=== PATIENT | female | born 1945 | race Caucasian/White ===

== ENCOUNTER 2019-09-14 16:40 | Inpatient (IN) ==
--- NOTE | 2019-09-14 17:08 | XRay Report ---
CLINICAL INFORMATION:Cough TECHNIQUE: AP portable upright chest x-ray COMPARISON: Previous chest x-rays dated 08/26/2016, 08/04/2018. FINDINGS:There is cardiomegaly. Pulmonary vascularity is prominent. There is probable mild interstitial pulmonary edema. Left lung base is not well visualized. This is probably due to overlying heart and extrathoracic soft tissues in this obese patient. Left basilar infiltrate is not excluded. IMPRESSION: 1. Cardiomegaly and pulmonary congestion 2. Interstitial pulmonary edema is possible 3. Left lung base is not well evaluated due to patient obesity Interpreted and Authenticated by: Tim Osuna 09/14/19
[2019-09-14] MEDS: LACTATED RINGERS 1,000 ML IV SCH ×2 (17:25→23:57)
--- NOTE | 2019-09-14 17:37 | Emergency Department Note ---
General Adult HPI - General Chief complaint: Weakness Stated complaint: weakness Time Seen by Provider: 09/14/19 16:45 Source: patient, EMS Mode of arrival: wheelchair Limitations: no limitations - History of Present Illness HPI Narrative: This patient was diagnosed with Lewy body dementia back in November. She has been living at home and family has been caring for her but is getting much more difficult. She has great difficulty walking now and has been falling more and they have had to call the fire department to get assistance in getting her up. She is morbidly obese and very heavy. She has had a slight cough and complains of pain in her left foot after falling this morning. Also has had some edema to her legs. - Related Data Home Medications Medication Instructions Recorded Confirmed Irbesartan/Hydrochlorothiazide 1 each PO DAILY 08/21/16 08/21/16 [Irbesartan-Hctz 150-12.5 mg Tb] LORazepam [Ativan] 2 mg PO PRN PRN 08/21/16 09/14/19 Levothyroxine Sodium [Synthroid] 112 mcg PO DAILY 08/21/16 08/21/16 Ondansetron [Zofran] 4 mg SL Q4HP PRN 08/21/16 08/21/16 Pantoprazole [Protonix] 40 mg PO DAILY 08/21/16 09/14/19 Zafirlukast 20 mg PO BID 08/21/16 08/21/16 buPROPion HCL [Wellbutrin Xl] 300 mg PO DAILY 08/21/16 09/14/19 Previous Rx's Medication Instructions Recorded Pot Chloride/Pot Bicarb/Cit AC 25 meq PO TID #15 tablet.eff 08/21/16 [Potassium Cl 25 Meq Tab Eff] Promethazine HCl 12.5 mg PO Q6HP PRN #20 tablet 08/21/16 Albuterol Sulfate [Ventolin] 2 puff INH Q4-6HP PRN #1 inhaler 08/04/18 Azithromycin [Zithromax] 250 mg PO DAILY #4 tab 08/04/18 Allergies Allergy/AdvReac Type Severity Reaction Status Date / Time fentanyl [FENTANYL] Allergy Severe SOB, Verified 08/04/18 07:29 ASTHMA TYPE SYMPTOMS hydromorphone Allergy Severe Anaphylaxis Verified 08/04/18 07:29 codeine AdvReac Intermediate Hallucinati Verified 08/04/18 07:29 ons meclizine AdvReac Intermediate Hallucinati Verified 08/04/18 07:29 ons diazepam AdvReac Mild Chest Pain Verified 09/14/19 16:46 morphine [MORPHINE] AdvReac Mild HALLUCINATI Verified 08/04/18 07:29 ONS oxycodone [From OXYCONTIN] AdvReac Mild NAUSEA/VOMITING, Verified 08/04/18 07:29 HALLUCINATIONS Review of Systems All systems ED: reviewed and negative except as stated. Past Medical History - Past Medical History [facility] Narrative: Medical History Hypokalemia (Acute) Gastroenteritis (Acute) Medical history: Reports: arthritis, DM, fibromyalgia, thyroid disease, other Surgical history ED: Reports: cholecystectomy, hysterectomy, knee replacement, orthopedic, other (back surgery, thumb surgery, foot surgery, carpal tunnel) - Social History smoking status: Never smoker Alcohol use: Reports: None Drug use: Reports: none Physical Exam Left foot does show some swelling and tenderness over the top of the foot Limitations: no limitations General appearance: alert Head: atraumatic, normocephalic Eye: Present: normal appearance ENT: Present: normal exam Neck: Present: normal inspection Chest: Present: normal inspection Respiratory: Present: rales/crackles Cardiovascular: Present: regular rate, normal rhythm, normal heart sounds Abdominal: Present: soft. Absent: distention, tenderness Extremities: Present: pedal edema, pretibial edema Neurological: Present: alert Psychiatric: Present: normal affect Skin: Present: warm, dry Course Vital Signs Temperature 97.4 F 09/14/19 16:41 Pulse Rate 73 09/14/19 16:41 Respiratory Rate 19 09/14/19 16:41 Blood Pressure 144/49 09/14/19 16:41 Pulse Oximetry (%) 96 09/14/19 16:41 Temperature 97.4 F 09/14/19 16:41 Pulse Rate 73 09/14/19 19:21 Respiratory Rate 14 09/14/19 19:21 Blood Pressure 121/69 09/14/19 19:16 Pulse Oximetry (%) 96 09/14/19 19:21 Medical Decision Making - [facility] Narrative Medical decision making narrative: This patient did have guaiac positive stool but a negative urine. Stool was brown. Her iron studies are quite low. I think she has probably had a slow GI bleed. Hemodynamically she is stable. She will be admitted to the hospital by the hospitalist service. - Lab Data Lab results reviewed: Yes I reviewed the patient's lab results. Result diagrams: 09/14/19 17:10 09/14/19 17:10 Lab Results 09/14/19 09/14/19 09/14/19 Range/Units 17:10 17:10 17:10 WBC 7.7 (4.5-11.0) K/mcL RBC 3.24 L (4.00-5.20) M/mcL Hgb 6.6 L* (12.0-15.0) g/dL Hct 22.3 L (36.0-48.0) % MCV 68.8 L (80.0-100.0) fL MCH 20.3 L (26.0-34.0) pg MCHC 29.5 L (31.0-36.0) g/dL RDW 22.7 H (11.5-14.5) % Plt Count 94 L (140-440) K/mcL MPV 8.5 (7.4-10.4) fL Gran % 65.0 (38.0-78.0) % Lymph % (Auto) 19.0 (15.5-49.0) % Kane % (Auto) 11.0 (1.0-12.0) % Eos % (Auto) 4.0 (0.0-7.0) % Baso % (Auto) 1.0 (0.0-2.0) % Differential Comment * Sodium 133 (133-145) mmol/L Potassium 5.3 H (3.3-5.1) mmol/L Chloride 97 (96-108) mmol/L Carbon Dioxide 24 (22-30) mmol/L Anion Gap 12.0 (8-16) BUN 27 H (8-23) mg/dl Creatinine 1.1 (0.6-1.1) mg/dl GFR Calculation 50 Glucose 113 H (70-105) mg/dL Calcium 8.8 (8.6-10.4) mg/dl Iron (37-145) mcg/dl Ferritin (30-400) ng/ml Total Bilirubin 0.6 (0.0-1.0) mg/dL AST 21 (0-37) U/l ALT 12 (0-40) U/l Alkaline Phosphatase 70 (39-117) U/L Troponin T < 0.01 (0-0.03) ng/ml NT-Pro-B Natriuret Pep (0-125) pg/ml Total Protein 6.4 (5.9-8.4) gm/dL Albumin 3.6 (3.2-5.2) gm/dL Globulin 2.8 (2.2-3.7) gm/dL Albumin/Globulin Ratio 1.3 (1.0-2.3) 09/14/19 09/14/19 Range/Units 17:10 17:10 WBC (4.5-11.0) K/mcL RBC (4.00-5.20) M/mcL Hgb (12.0-15.0) g/dL Hct (36.0-48.0) % MCV (80.0-100.0) fL MCH (26.0-34.0) pg MCHC (31.0-36.0) g/dL RDW (11.5-14.5) % Plt Count (140-440) K/mcL MPV (7.4-10.4) fL Gran % (38.0-78.0) % Lymph % (Auto) (15.5-49.0) % Kane % (Auto) (1.0-12.0) % Eos % (Auto) (0.0-7.0) % Baso % (Auto) (0.0-2.0) % Differential Comment Sodium (133-145) mmol/L Potassium (3.3-5.1) mmol/L Chloride (96-108) mmol/L Carbon Dioxide (22-30) mmol/L Anion Gap (8-16) BUN (8-23) mg/dl Creatinine (0.6-1.1) mg/dl GFR Calculation Glucose (70-105) mg/dL Calcium (8.6-10.4) mg/dl Iron 17 L (37-145) mcg/dl Ferritin 14.4 L (30-400) ng/ml Total Bilirubin (0.0-1.0) mg/dL AST (0-37) U/l ALT (0-40) U/l Alkaline Phosphatase (39-117) U/L Troponin T (0-0.03) ng/ml NT-Pro-B Natriuret Pep 884.1 H (0-125) pg/ml Total Protein (5.9-8.4) gm/dL Albumin (3.2-5.2) gm/dL Globulin (2.2-3.7) gm/dL Albumin/Globulin Ratio (1.0-2.3) - Radiology Data Radiology results reviewed: Yes I reviewed the patient's radiology results. Disposition Pt seen by QM NURSE/PA only: No Clinical Impression: Lewy body dementia, Upper GI bleed, Congestive heart failure Disposition: Xfer As Inpt ([facility]) Condition: Good Referrals: Issa Iyer MD [Primary Care Provider] - Time of Disposition: 19:45
[2019-09-14] MEDS ORDERED: 0.9 % SODIUM CHLORIDE 250 ML IV ONE (17:48)
[2019-09-14 18:03] LABS: ALT/SGPT 12 U/l (0-40); AST/SGOT 21 U/l (0-37); Albumin 3.6 gm/dL (3.2-5.2); Albumin/Globulin Ratio 1.3 (1.0-2.3); Alkaline Phosphatase 70 U/L (39-117); Bilirubin,Total 0.6 mg/dL (0.0-1.0); Blood Urea Nitrogen 27 mg/dl (8-23); Calcium 8.8 mg/dl (8.6-10.4); Carbon Dioxide 24 mmol/L (22-30); Chloride 97 mmol/L (96-108); Globulin 2.8 gm/dL (2.2-3.7); Glomerular Filtration Rate 50; Glucose 113 mg/dL (70-105)
--- NOTE | 2019-09-14 18:15 | XRay Report ---
CLINICAL INFORMATION: Left foot injury TECHNIQUE: Limited 2 view left foot COMPARISON: None. FINDINGS: Negative. No left foot fracture. There is degenerative joint disease in the interphalangeal joints. There is degenerative joint disease at the left first metatarsal phalangeal joint. No acute posttraumatic abnormality. IMPRESSION: No acute abnormality Interpreted and Authenticated by: Tim Osuna 09/14/19
[2019-09-14 18:17] LABS: Hematocrit 22.3 % (36.0-48.0); Hemoglobin 6.6 g/dL (12.0-15.0); Mean Cell Volume 68.8 fL (80.0-100.0); Mean Corpuscular HGB Conc 29.5 g/dL (31.0-36.0); Mean Platelet Volume 8.5 fL (7.4-10.4); Platelet Count 94 K/mcL (140-440); RBC 3.24 M/mcL (4.00-5.20); Red Cell Distribution Width 22.7 % (11.5-14.5); WBC 7.7 K/mcL (4.5-11.0)
[2019-09-14 19:00] LABS: Iron 17 mcg/dl (37-145)
[2019-09-14 19:08] LABS: Ferritin 14.4 ng/ml (30-400)
[2019-09-14] MEDS ORDERED: LIDOCAINE 2% URO-JET 5 ML JEL.PF.APP UR ONE (19:13)
[2019-09-14] MEDS ORDERED: FUROSEMIDE 20 MG/2 ML VIAL IV ONE (19:28)
[2019-09-14 20:21] LABS: Appearance,Urine CLEAR; Bacteria,Urine 0 /hpf (0); Bilirubin,Urine NEG (NEG); Color,Urine YELLOW; Culture Indicated,Urine NO; Glucose,Urine (UA) 150 mg/dL (NEG); Ketones,Urine NEG (NEG); Leukocyte Esterase,Urine NEG /uL (NEG); Mucus,Urine FEW /hpf (0); Nitrate,Urine NEG (NEG); Protein,Urine 100 mg/dL (NEG); Specific Gravity,Urine 1.021 (1.000-1.035); Urine Blood NEG mg/dL (<0.03); Urine Hyaline Cast 97 /lpf (0-2); Urine RBC 1 /hpf (0-1); Urine Squamous Epithelial Cell < 1 /hpf (0-4); Urine WBC 1 /hpf (0-4); Urobilinogen,Urine NEG (NEG)
[2019-09-14] MEDS ORDERED: ONDANSETRON 4 MG/2 ML VIAL IV PRN (20:52)
[2019-09-14] MEDS ORDERED: IPRATROPIUM/ALBUTEROL 3 ML AMPUL.NEB NEB PRN (20:52)
[2019-09-14] MEDS ORDERED: LACTULOSE 20 GM/30 ML ORAL.SOL PO PRN (20:52)
[2019-09-14] MEDS ORDERED: ACETAMINOPHEN 325 MG TABLET PO PRN (20:52)
[2019-09-14] MEDS ORDERED: SENNOSIDES 1 TABLET PO PRN (20:52)
--- NOTE | 2019-09-14 21:05 | Internal Med History&Physical ---
Medical - H&P: [facility] Patient information: Note initiated : 09/14/19 at 9:03 pm Service Date, if different from initiated Date: [] Patient: Diamond Bagley 74 y/o F admitted on for weakness. Chief Complaint: [] History of present illness: Ms. Bagley is a 74 year old F This is a 74-year-old femaleWith a history of morbid obesity, sleep apnea, recently diagnosed Lewy body dementia hallucinations was brought to the ER because of recurrent falls and weakness. According to the patient she gives up her legs and unable to stand she has electric scooter which she could not use as she could not change position she has been bedridden for the last few days. Patient family could not handle her home and was looking for a rehab placement and she was brought to the ER. In the ER initial evaluation showed chest x-ray which is pulmonary edema and her hemoglobin was 6.6 with a normal few months ago. Patient denied any melena hematochezia hematemesis she reported brown stools. She is forgetful she gets hallucinations and delusions. - Constitutional Constitutional: Present: daytime sleepiness, fatigue, frequent falls, malaise, snoring, stops breathing during sleep, weight gain. Absent: chills, excessive sweating, fever(s) - EENT Ears: Absent: ear discharge, ear pain - Cardiovascular Cardiovascular: Present: leg edema, lightheadedness, pedal edema. Absent: chest pain, palpatations - Respiratory Respiratory: Present: dyspnea, dyspnea on exertion, wheezing, snoring, chest congestion. Absent: hemoptysis - Gastrointestinal Gastrointestinal: Present: belching, dyspepsia. Absent: abdominal pain, bloating, change in bowel habits, constipation, diarrhea, dysphagia - Neurological Neurological: Present: behavioral changes, confusion, dizziness, weakness. Absent: sensory deficit, tingling, tremor(s) - Psychiatric Psychiatric: Present: auditory hallucinations, confusion, hallucinations, irritability, memory loss, visual hallucinations. Absent: suicidal ideation Medical - H&P: [facility] Medical history: Medical History Hypokalemia (Acute) Gastroenteritis (Acute) Surgical history: Multiple back surgeries Family history: reviewed and not pertinent Pertinent family history: Grandmother-history of pernicious anemia Social history: Former smoker quit many years ago No alcohol use and no drug abuse Medical - H&P: Meds Home Medications Medication Instructions Recorded Confirmed Type LORazepam [Ativan] 2 mg PO PRN PRN 08/21/16 09/14/19 History Levothyroxine Sodium [Synthroid] 115 mcg PO DAILY 08/21/16 08/21/16 History Ondansetron [Zofran] 4 mg SL Q4HP PRN 08/21/16 08/21/16 History Pantoprazole [Protonix] 40 mg PO DAILY 08/21/16 09/14/19 History Promethazine HCl 12.5 mg PO Q6HP PRN #20 tablet 08/21/16 09/14/19 Rx Zafirlukast 20 mg PO BID 08/21/16 08/21/16 History buPROPion HCL [Wellbutrin Xl] 300 mg PO DAILY 08/21/16 09/14/19 History Albuterol Sulfate [Ventolin] 2 puff INH Q4-6HP PRN #1 inhaler 08/04/18 Rx Celecoxib [Celebrex] DAILY 09/14/19 History Pregabalin [Lyrica] 150 mg PO TID 09/14/19 09/14/19 History Sertraline [Zoloft] PO DAILY 09/14/19 History Telmisartan [Micardis] 20 mg PO DAILY 09/14/19 09/14/19 History Allergies Allergy/AdvReac Type Severity Reaction Status Date / Time fentanyl [FENTANYL] Allergy Severe SOB, Verified 08/04/18 07:29 ASTHMA TYPE SYMPTOMS hydromorphone Allergy Severe Anaphylaxis Verified 08/04/18 07:29 codeine AdvReac Intermediate Hallucinati Verified 08/04/18 07:29 ons meclizine AdvReac Intermediate Hallucinati Verified 08/04/18 07:29 ons diazepam AdvReac Mild Chest Pain Verified 09/14/19 16:46 morphine [MORPHINE] AdvReac Mild HALLUCINATI Verified 08/04/18 07:29 ONS oxycodone [From OXYCONTIN] AdvReac Mild NAUSEA/VOMITING, Verified 08/04/18 07:29 HALLUCINATIONS Medical - H&P: Exam - Constitutional Vitals: Temp Pulse Resp BP Pulse Ox 97.4 F 72 23 H 150/54 98 09/14/19 16:41 09/14/19 20:39 09/14/19 20:34 09/14/19 20:34 09/14/19 20:39 General appearance: morbidly obese - Head Head exam: Present: atraumatic, normal inspection - Expanded Head Exam Head exam: Absent: abrasion, Shine's sign - Eye Eye exam: Absent: nystagmus, periorbital tenderness Pupils: Present: PERRL - ENT ENT exam: Present: mucous membranes moist, normal oropharynx - Expanded ENT Exam Ear exam: Absent: auricular hematoma, auricular trauma - Neck Neck exam: Present: full ROM, lymphadenopathy, normal inspection. Absent: meningismus - Respiratory Respiratory exam: Present: normal respiratory exam, decreased breath sounds, wheezes. Absent: accessory muscle use, chest wall tenderness - Cardiovascular Cardiovascular exam: Present: normal rate and rhythm. Absent: bradycardia, diastolic murmur - GI/Abdominal GI/Abdominal exam: Present: normal bowel sounds, soft, distended - Extremities Exam Extremities exam: Present: calf tenderness, full ROM, joint swelling - Neurological Exam Neurological exam: Present: alert, oriented X3, reflexes normal. Absent: CN II- XII intact, motor sensory deficit Medical - H&P: Reslt - Labs CBC & Chem 7: 09/14/19 17:10 09/14/19 17:10 Labs: Short CBC 09/14/19 Range/Units 17:10 WBC 7.7 (4.5-11.0) K/mcL Hgb 6.6 L* (12.0-15.0) g/dL Hct 22.3 L (36.0-48.0) % Plt Count 94 L (140-440) K/mcL BMP 09/14/19 17:10 Sodium 133 Potassium 5.3 H Chloride 97 Carbon Dioxide 24 BUN 27 H Creatinine 1.1 Glucose 113 H Calcium 8.8 Cardiac Enzymes 09/14/19 Range/Units 17:10 Troponin T < 0.01 (0-0.03) ng/ml Liver Function 09/14/19 Range/Units 17:10 Total Bilirubin 0.6 (0.0-1.0) mg/dL AST 21 (0-37) U/l ALT 12 (0-40) U/l Alkaline Phosphatase 70 (39-117) U/L Albumin 3.6 (3.2-5.2) gm/dL Urine 09/14/19 Range/Units 19:45 Urine Color Yellow Urine Appearance Clear Urine pH 5.0 (5.0-9.0) Ur Specific [place] 1.021 (1.000-1.035) Urine Protein 100 A (NEG) mg/dL Urine Glucose (UA) 150 A (NEG) mg/dL Medical - H&P: A/P - Narrative A/P Narrative: Acute blood loss anemia Probable GI bleed BUN slightly elevated no evidence of melena hematochezia or hematemesis This is probably a slow bleed over the last few weeks Symptomatic Plan Ordered 2 units blood transfusion in the ER We will monitor her vital signs We will discuss with the mounter automatic tomorrow Ordered Pepcid IV 20 twice daily History of previous history of peptic ulcer disease many years ago Monitor hemoglobin every 12 Morbid obesity, obesity hypoventilation and probable pulmonary hypertension Monitor her oxygenation Watch for any pulmonary edema or CHF We will hold off any Lasix for now she received 1 dose in the ER Dementia with behavioral changes Patient reportedly having Lewy body dementia diagnosed by the primary care provider. Patient never seen a neurologist according to the report She is having hallucination and delusions Family could not handle her at home because of her debility and obesity with a worsening dementia symptoms We will have social service physical therapy and case management look for safe placement options Sleep apnea Patient refuses to use the Pap machine Will use oxygen as needed Severe back pain We will try to minimize the use of narcotics DVT prophylaxis-SCDs and no heparin products until BX results CODE STATUS-DNR verified with family Expected length of stay-at least 2 midnights
[2019-09-14] MEDS ORDERED: LORazepam 1 MG TABLET PO PRN (21:08)
[2019-09-14 22:44] LABS: ALT/SGPT 11 U/l (0-40); AST/SGOT 28 U/l (0-37); Albumin 3.6 gm/dL (3.2-5.2); Albumin/Globulin Ratio 1.3 (1.0-2.3); Alkaline Phosphatase 68 U/L (39-117); Bilirubin,Total 0.6 mg/dL (0.0-1.0); Blood Urea Nitrogen 28 mg/dl (8-23); Calcium 8.4 mg/dl (8.6-10.4); Carbon Dioxide 24 mmol/L (22-30); Chloride 100 mmol/L (96-108); Globulin 2.8 gm/dL (2.2-3.7); Glomerular Filtration Rate 50; Glucose 105 mg/dL (70-105)
[2019-09-14] MEDS: DOCUSATE SODIUM 100 MG CAPSULE PO SCH (23:57)
[2019-09-14] MEDS: 0.9 % SODIUM CHLORIDE 10 ML SYRINGE IV SCH (23:58)
[2019-09-14] MEDS: FAMOTIDINE/PF 20 MG/2 ML VIAL IV SCH (23:58)
[2019-09-15] MEDS ORDERED: LORazepam 1 MG TABLET ONE (00:14)
[2019-09-15 01:35] LABS: Appearance,Urine CLEAR; Bacteria,Urine 0 /hpf (0); Bilirubin,Urine NEG (NEG); Color,Urine STRAW; Culture Indicated,Urine YES; Glucose,Urine (UA) 50 mg/dL (NEG); Ketones,Urine NEG (NEG); Leukocyte Esterase,Urine 500 /uL (NEG); Mucus,Urine FEW /hpf (0); Nitrate,Urine NEG (NEG); Protein,Urine NEG (NEG); Specific Gravity,Urine 1.009 (1.000-1.035); Urine Blood >=1.0 mg/dL (<0.03); Urine Hyaline Cast 5 /lpf (0-2); Urine RBC 29 /hpf (0-1); Urine Squamous Epithelial Cell < 1 /hpf (0-4); Urine WBC 82 /hpf (0-4); Urobilinogen,Urine NEG (NEG)
[2019-09-15 04:06] LABS: Hematocrit 25.3 % (36.0-48.0); Hemoglobin 7.6 g/dL (12.0-15.0); Mean Cell Volume 72.4 fL (80.0-100.0); Mean Corpuscular HGB Conc 30.1 g/dL (31.0-36.0); Mean Platelet Volume 10.8 fL (7.4-10.4); Platelet Count 102 K/mcL (140-440); RBC 3.49 M/mcL (4.00-5.20); Red Cell Distribution Width 22.9 % (11.5-14.5); WBC 6.8 K/mcL (4.5-11.0)
[2019-09-15] MEDS: LACTATED RINGERS 1,000 ML IV SCH ×4 (04:14→15:17)
[2019-09-15 04:20] LABS: ALT/SGPT 12 U/l (0-40); AST/SGOT 26 U/l (0-37); Albumin 3.4 gm/dL (3.2-5.2); Albumin/Globulin Ratio 1.2 (1.0-2.3); Alkaline Phosphatase 67 U/L (39-117); Bilirubin,Total 0.7 mg/dL (0.0-1.0); Blood Urea Nitrogen 25 mg/dl (8-23); Calcium 8.6 mg/dl (8.6-10.4); Carbon Dioxide 24 mmol/L (22-30); Chloride 102 mmol/L (96-108); Globulin 2.8 gm/dL (2.2-3.7); Glomerular Filtration Rate 56; Glucose 104 mg/dL (70-105)
[2019-09-15 05:03] LABS: Anisocytosis 2+ (NONE SEEN); Band Neutrophils % 2 % (0-10); Hypochromasia 1+ (NONE SEEN); Lymphocytes % 32 % (15-49); Microcytosis 2+ (NONE SEEN); Monocytes % (Manual) 8 % (1-12); Nucleated Red Blood Cells 2 % (0-0); Ovalocytes 1+ (NONE SEEN); Platelet Estimate DECREASED (NORMAL); Polychromasia 1+ (NONE SEEN); RBC Morphology ABNORM (NORMAL); Segmented Neutrophils % 58 % (38-78)
[2019-09-15] MEDS: 0.9 % SODIUM CHLORIDE 10 ML SYRINGE IV SCH ×3 (05:29→22:53)
[2019-09-15] MEDS ORDERED: PREGABALIN 150 MG CAPSULE PO SCH (09:00)
[2019-09-15] MEDS ORDERED: 0.9 % SODIUM CHLORIDE 250 ML IV SCH ×3 (09:30→10:45)
[2019-09-15] MEDS: LEVOTHYROXINE 150 MCG TABLET PO SCH (09:55)
[2019-09-15] MEDS ORDERED: FUROSEMIDE 40 MG/4 ML VIAL IV ONE (11:42)
[2019-09-15] MEDS: FAMOTIDINE/PF 20 MG/2 ML VIAL IV SCH ×2 (12:16→22:53)
[2019-09-15] MEDS: buPROPion 150 MG TAB.XL.24H PO SCH (12:18)
[2019-09-15] MEDS: LOSARTAN 50 MG TABLET PO SCH (12:18)
[2019-09-15] MEDS: DOCUSATE SODIUM 100 MG CAPSULE PO SCH ×2 (12:18→22:52)
[2019-09-15] MEDS: SERTRALINE 100 MG TABLET PO SCH (12:18)
--- NOTE | 2019-09-15 20:46 | Internal Med Progress Note ---
Medical - PN: Subj Patient information: Note initiated : 09/15/19 at 8:44 pm Service Date, if different from initiated Date: [] Patient: Diamond Bagley 74 y/o F admitted on 09/14/19 for weakness. Chief Complaint: [] Interval history: This is a 74-year-old female with morbid obesity, sleep apnea untreated, Yesy body dementia was admitted with a weakness and probable blood loss anemia. Patient was kept n.p.o. and ordered 1 unit of blood transfusion recheck hemoglobin. 09/15-patient was n.p.o. and ordered another unit as her hemoglobin was 7.6 and she is still complaining of shortness of breath. Discussed with gastroenterology Dr. Alegre and plan was to do an EGD. But this afternoon but patient refused EGD, discussed with the family and family agreed they do not want EGD as the patient is refusing. Patient understands she could from the GI bleed if we do not find out the source and to stop the bleeding patient seems to be understanding family understands. Because of her dementia family is leaning more towards comfort care and I gave them the option to consider comfort measures if the patient does not want any active interventions. Patient was also very drowsy this morning and shown the signs of carbon dioxide narcosis probably from severe sleep apnea which is untreated patient refuses CPAP at any cost she understands she could from carbonDIOXIDE narcosis but even then she does not want CPAP. Discussed with gastroenterology and gastroenterology PA will come and talk to the patient. Pertinent ROS: Review of systems-unable to obtain as the patient is uncooperative but she generally denied any chest pain or abdominal pain or any urine symptoms - Constitutional Vitals: Vital Signs Temp Pulse Resp BP Pulse Ox 98 F 74 18 153/59 93 09/15/19 16:25 09/15/19 17:01 09/15/19 17:01 09/15/19 17:01 09/15/19 17:01 Period Temp Pulse Resp BP Sys/Lr Pulse Ox Last 24 Hr 97.4 F-98.1 F 59-75 12- 104-162/46-96 91-99 Intake and Output 09/15/19 09/15/19 09/15/19 05:59 13:59 21:59 Intake Total 1650 2314 60 Output Total 900 1775 1000 Balance 750 539 -940 Weight 341 lb 4.8 oz Patient Weight 09/16/19 05:59 Weight 341 lb 4.8 oz Intake & Output: Intake & Output 09/15/19 09/15/19 09/15/19 05:59 13:59 21:59 Intake Total 1650 2314 60 Output Total 900 1775 1000 Balance 750 539 -940 Weight 341 lb 4.8 oz Intake: IV 1000 1967 60 Sodium Chloride 0.9% 250 ml @ 60 20 mls/hr IV .[id number] KYM Rx#: [id number] Lactated Ringers 1,000 ml @ 250 1000 1967 mls/hr IV .Q4H KYM Rx#: [id number] Oral 0 Blood Product 650 347 Output: Urine Catheter Amount 900 1775 1000 Other: Urine Appearance Clear Uretheral (Robles) Clear Clear Urine Color Bright Yellow Uretheral (Robles) Dark Yellow Dark Yellow Stool Size Large Small Stool Color Brown Brown Stool Consistency Soft Loose # Bowel Movements 1 1 General appearance: morbidly obese - Head Head exam: Present: atraumatic, normal inspection - Eye Eye exam: Present: conjunctival injection - ENT ENT exam: Present: normal exam - Neck Neck exam: Present: normal inspection, tenderness - Respiratory Respiratory exam: Present: accessory muscle use, decreased breath sounds, respiratory distress - Cardiovascular Cardiovascular exam: Present: normal rate and rhythm. Absent: bradycardia, diastolic murmur - GI/Abdominal GI/Abdominal exam: Present: soft, distended. Absent: rebound, tenderness - Neurological Exam Neurological exam: Present: alert, CN II-XII intact, motor sensory deficit, oriented X3, reflexes normal Medical - PN: Obj Da - Labs CBC & Chem 7: 09/15/19 03:00 09/15/19 03:00 Labs: Abnormal Lab Results 09/15/19 09/15/19 09/15/19 03:00 03:00 00:35 RBC 3.49 L Hgb 7.6 L Hct 25.3 L MCV 72.4 L MCH 21.8 L MCHC 30.1 L RDW 22.9 H Plt Count 102 L MPV 10.8 H Nucleated RBCs 2 H RBC Morphology Abnorm A Polychromasia 1+ A Hypochromasia 1+ A Anisocytosis 2+ A Microcytosis 2+ A Ovalocytes 1+ A Potassium BUN 25 H Glucose Calcium Iron Ferritin NT-Pro-B Natriuret Pep Urine Protein Urine Glucose (UA) 50 A Urine Occult Blood >=1.0 A Ur Leukocyte Esterase 500 A Urine RBC 29 H Urine WBC 82 H Hyaline Casts 5 H 09/14/19 09/14/19 09/14/19 21:15 19:45 17:10 RBC Hgb Hct MCV MCH MCHC RDW Plt Count MPV Nucleated RBCs RBC Morphology Polychromasia Hypochromasia Anisocytosis Microcytosis Ovalocytes Potassium 5.4 H BUN 28 H Glucose Calcium 8.4 L Iron 17 L Ferritin 14.4 L NT-Pro-B Natriuret Pep Urine Protein 100 A Urine Glucose (UA) 150 A Urine Occult Blood Ur Leukocyte Esterase Urine RBC Urine WBC Hyaline Casts 97 H 09/14/19 09/14/19 09/14/19 17:10 17:10 17:10 RBC 3.24 L Hgb 6.6 L* Hct 22.3 L MCV 68.8 L MCH 20.3 L MCHC 29.5 L RDW 22.7 H Plt Count 94 L MPV Nucleated RBCs RBC Morphology Polychromasia Hypochromasia Anisocytosis Microcytosis Ovalocytes Potassium 5.3 H BUN 27 H Glucose 113 H Calcium Iron Ferritin NT-Pro-B Natriuret Pep 884.1 H Urine Protein Urine Glucose (UA) Urine Occult Blood Ur Leukocyte Esterase Urine RBC Urine WBC Hyaline Casts Meds: Medications Acetaminophen (Tylenol) 650 mg PO Q6HP PRN; Protocol PRN Reason: Per Pain Protocol/Fever > 101 Last Admin: 09/15/19 00:27 Dose: 650 mg Documented by: Albuterol/Ipratropium (Duoneb) 3 ml NEB Q6HP PRN PRN Reason: Shortness Of Breath Or Wheezing Bupropion HCl (Wellbutrin Xl) 300 mg PO DAILY [facility] Last Admin: 09/15/19 12:18 Dose: 300 mg Documented by: Docusate Sodium (Colace) 100 mg PO BID [facility] Last Admin: 09/15/19 12:18 Dose: Not Given Documented by: Famotidine (Pepcid) 20 mg IV Q12 [facility] Last Admin: 09/15/19 12:16 Dose: 20 mg Documented by: Lactulose (Cephulac) 10 gm PO DAILYP PRN PRN Reason: Constipation Levothyroxine Sodium (Synthroid) 150 mcg PO QAMAC [facility] Last Admin: 09/15/19 09:55 Dose: Not Given Documented by: Losartan Potassium (Cozaar) 50 mg PO DAILY [facility] Last Admin: 09/15/19 12:18 Dose: Not Given Documented by: Ondansetron HCl (Zofran) 4 mg IV Q4HP PRN; Protocol PRN Reason: Nausea And Vomiting Senna (Senokot) 2 tab PO HSP PRN PRN Reason: Constipation Sertraline HCl (Zoloft) 100 mg PO DAILY [facility] Last Admin: 09/15/19 12:18 Dose: Not Given Documented by: Sodium Chloride (Saline Flush) 10 ml IV Q8 [facility] Last Admin: 09/15/19 05:29 Dose: Not Given Documented by: Medical - PN: A/P - Time Spent With Patient Total time spent is greater than 50% in coordination of care (as documented) at patient's floor/unit and/or counseling patient: - Narrative A/P Narrative: Acute blood loss anemia Probable GI bleed Plan Ordered 2 units blood transfusion and hemoglobin recheck every 6 hourly Ordered Pepcid IV 20 twice daily Discussed with gastroenterology and the plan was to undergo EGD today Patient refused EGD this afternoon and she understands she could from GI bleed if we do not treated even then she does not want any treatment or any EGD History of previous history of peptic ulcer disease many years ago Monitor hemoglobin every 12 Discussed with the patient and family if she does not want any treatment discussed about nonmedical management and comfort measures for her dementia, severe sleep apnea with a carbon dioxide narcosis Morbid obesity, obesity hypoventilation and probable pulmonary hypertension Monitor her oxygenation Watch for any pulmonary edema or CHF We will hold off any Lasix for now she received 1 dose in the ER Patient probably has severe sleep apnea This morning she was very drowsy and confused probably due to CO2 narcosis Explained to the patient about the importance of using CPAP but patient refuses even if I am dying I do not want CPAP Patient was alert oriented and has a decision-making capacity during the conversation Discussed with the family and they agree with the patient's decision and do not want any interventions Explained to the family if that is the case probably we need to think about nonmedical management and symptomatic management as an outpatient Dementia with behavioral changes Patient reportedly having Lewy body dementia diagnosed by the primary care provider. Patient never seen a neurologist according to the report She is having hallucination and delusions Family could not handle her at home because of her debility and obesity with a worsening dementia symptoms Social service consult Sleep apnea Patient refuses to use the CPap machine Will use oxygen as needed Severe back pain We will try to minimize the use of narcotics DVT prophylaxis-SCDs and no heparin products until BX results CODE STATUS-DNR verified with family Expected length of stay-at least 1-2 midnights
[2019-09-16 04:59] LABS: Hematocrit 29.2 % (36.0-48.0); Mean Cell Volume 73.4 fL (80.0-100.0); Mean Corpuscular HGB Conc 30.8 g/dL (31.0-36.0); Mean Platelet Volume 9.9 fL (7.4-10.4); Platelet Count 95 K/mcL (140-440); RBC 3.98 M/mcL (4.00-5.20); Red Cell Distribution Width 23.4 % (11.5-14.5); WBC 6.6 K/mcL (4.5-11.0)
[2019-09-16 05:02] LABS: ALT/SGPT 11 U/l (0-40); AST/SGOT 28 U/l (0-37); Albumin 3.3 gm/dL (3.2-5.2); Albumin/Globulin Ratio 1.1 (1.0-2.3); Alkaline Phosphatase 68 U/L (39-117); Bilirubin,Total 0.8 mg/dL (0.0-1.0); Calcium 8.5 mg/dl (8.6-10.4); Carbon Dioxide 27 mmol/L (22-30); Chloride 102 mmol/L (96-108); Globulin 2.9 gm/dL (2.2-3.7); Glomerular Filtration Rate 73; Glucose 103 mg/dL (70-105)
[2019-09-16 05:04] LABS: Blood Urea Nitrogen 17 mg/dl (8-23)
[2019-09-16 05:42] LABS: Anisocytosis 2+ (NONE SEEN); Eosinophils % (Manual) 7 % (0-7); Hypochromasia 1+ (NONE SEEN); Lymphocytes % 20 % (15-49); Microcytosis 2+ (NONE SEEN); Monocytes % (Manual) 13 % (1-12); Nucleated Red Blood Cells 1 % (0-0); Platelet Estimate DECREASED (NORMAL); RBC Morphology ABNORMAL (NORMAL); Segmented Neutrophils % 60 % (38-78)
[2019-09-16] MEDS: 0.9 % SODIUM CHLORIDE 10 ML SYRINGE IV SCH ×3 (05:44→21:59)
[2019-09-16] MEDS: DOCUSATE SODIUM 100 MG CAPSULE PO SCH ×2 (09:38→22:09)
[2019-09-16] MEDS: FAMOTIDINE/PF 20 MG/2 ML VIAL IV SCH ×2 (09:38→21:59)
[2019-09-16] MEDS: LEVOTHYROXINE 150 MCG TABLET PO SCH (09:38)
[2019-09-16] MEDS: LOSARTAN 50 MG TABLET PO SCH (09:38)
[2019-09-16] MEDS: buPROPion 150 MG TAB.XL.24H PO SCH (10:15)
[2019-09-16] MEDS: SERTRALINE 100 MG TABLET PO SCH (10:15)
--- NOTE | 2019-09-16 11:28 | Internal Med Progress Note ---
Medical - PN: Subj Patient information: Note initiated : 09/16/19 at 11:26 am Service Date, if different from initiated Date: [] Patient: Diamond Bagley 74 y/o F admitted on 09/14/19 for weakness. Chief Complaint: [] Interval history: This is a 74-year-old female with morbid obesity, sleep apnea untreated, Yesy body dementia was admitted with a weakness and probable blood loss anemia. Patient was kept n.p.o. and ordered 1 unit of blood transfusion recheck hemoglobin. 09/15-patient was n.p.o. and ordered another unit as her hemoglobin was 7.6 and she is still complaining of shortness of breath. Discussed with gastroenterology Dr. Alegre and plan was to do an EGD. But this afternoon but patient refused EGD, discussed with the family and family agreed they do not want EGD as the patient is refusing. Patient understands she could from the GI bleed if we do not find out the source and to stop the bleeding patient seems to be understanding family understands. Because of her dementia family is leaning more towards comfort care and I gave them the option to consider comfort measures if the patient does not want any active interventions. Patient was also very drowsy this morning and shown the signs of carbon dioxide narcosis probably from severe sleep apnea which is untreated patient refuses CPAP at any cost she understands she could from carbonDIOXIDE narcosis but even then she does not want CPAP. Discussed with gastroenterology and gastroenterology PA will come and talk to the patient. 09/16-patient refused any of the care, discussed with the patient's family and they do not want any active treatments. Discussed with the family about planning to discharge her and physical therapy will evaluate the patient if she allows. Patient refused EGD patient refused further evaluation of GI bleed. She is intermittently confused but right now she is alert oriented has a d ecision-making capacity she is totally aware of the medical background and she understands the complications she reiterated that to me. Pertinent ROS: Review of systems General-no distress, no pain Respiratory-occasional shortness of breath when she moves Cardiovascular-no chest pain no palpitations no dizziness Abdomen-distended no pain no further evidence of any bleed Neuro-no focal deficit no seizure Occasional confusion - Constitutional Vitals: Vital Signs Temp Pulse Resp BP Pulse Ox 97.3 F 74 20 155/79 86 L 09/16/19 07:08 09/16/19 07:08 09/16/19 07:08 09/16/19 07:08 09/16/19 07:08 Period Temp Pulse Resp BP Sys/Lr Pulse Ox Last 24 Hr 97.3 F-98 F 65-80 14-21 110-155/51-97 83-99 Intake and Output 09/15/19 09/16/19 09/16/19 21:59 05:59 13:59 Intake Total 60 Output Total 1500 700 Balance -1440 -700 Weight 335 lb 1.6 oz Intake & Output: Intake & Output 09/15/19 09/16/19 09/16/19 21:59 05:59 13:59 Intake Total 60 Output Total 1500 700 Balance -1440 -700 Weight 335 lb 1.6 oz Intake: IV 60 Sodium Chloride 0.9% 250 ml @ 60 20 mls/hr IV .[id number] [facility] Rx#: [id number] Output: Urine Catheter Amount 1500 700 Other: Urine Appearance Clear Clear Uretheral (Robles) Clear Clear Clear Urine Color Bright Yellow Bright Yellow Uretheral (Robles) Bright Yellow Dark Yellow Urine Odor Normal Normal Stool Size Small Moderate Moderate Stool Color Brown Brown Stool Consistency Loose Loose Loose # Bowel Movements 0 1 1 General appearance: disheveled, morbidly obese - Head Head exam: Present: atraumatic, normocephalic - Eye Eye exam: Present: conjunctival injection. Absent: nystagmus, periorbital swelling, periorbital tenderness - ENT ENT exam: Present: mucous membranes dry, normal exam, normal external ear exam - Respiratory Respiratory exam: Present: accessory muscle use, decreased breath sounds, wheezes - Cardiovascular Cardiovascular exam: Present: normal rate and rhythm. Absent: bradycardia, clicks, diastolic murmur - GI/Abdominal GI/Abdominal exam: Present: normal bowel sounds, soft, distended. Absent: tenderness - Neurological Exam Neurological exam: Present: alert, oriented X3. Absent: motor sensory deficit - Psychiatric Psychiatric exam: Present: anxious. Absent: agitated, depressed Medical - PN: Obj Da - Labs CBC & Chem 7: 09/16/19 04:03 09/16/19 04:03 Labs: Abnormal Lab Results 09/16/19 09/16/19 09/15/19 04:03 04:03 03:00 RBC 3.98 L Hgb 9.0 L Hct 29.2 L MCV 73.4 L MCH 22.6 L MCHC 30.8 L RDW 23.4 H Plt Count 95 L MPV Monocytes % (Manual) 13 H Nucleated RBCs 1 H RBC Morphology Polychromasia Hypochromasia 1+ A Anisocytosis 2+ A Microcytosis 2+ A Ovalocytes Potassium BUN 25 H Glucose Calcium 8.5 L Iron Ferritin NT-Pro-B Natriuret Pep Urine Protein Urine Glucose (UA) Urine Occult Blood Ur Leukocyte Esterase Urine RBC Urine WBC Hyaline Casts 09/15/19 09/15/19 09/14/19 03:00 00:35 21:15 RBC 3.49 L Hgb 7.6 L Hct 25.3 L MCV 72.4 L MCH 21.8 L MCHC 30.1 L RDW 22.9 H Plt Count 102 L MPV 10.8 H Monocytes % (Manual) Nucleated RBCs 2 H RBC Morphology Abnorm A Polychromasia 1+ A Hypochromasia 1+ A Anisocytosis 2+ A Microcytosis 2+ A Ovalocytes 1+ A Potassium 5.4 H BUN 28 H Glucose Calcium 8.4 L Iron Ferritin NT-Pro-B Natriuret Pep Urine Protein Urine Glucose (UA) 50 A Urine Occult Blood >=1.0 A Ur Leukocyte Esterase 500 A Urine RBC 29 H Urine WBC 82 H Hyaline Casts 5 H 09/14/19 09/14/19 09/14/19 19:45 17:10 17:10 RBC Hgb Hct MCV MCH MCHC RDW Plt Count MPV Monocytes % (Manual) Nucleated RBCs RBC Morphology Polychromasia Hypochromasia Anisocytosis Microcytosis Ovalocytes Potassium BUN Glucose Calcium Iron 17 L Ferritin 14.4 L NT-Pro-B Natriuret Pep 884.1 H Urine Protein 100 A Urine Glucose (UA) 150 A Urine Occult Blood Ur Leukocyte Esterase Urine RBC Urine WBC Hyaline Casts 97 H 09/14/19 09/14/19 17:10 17:10 RBC 3.24 L Hgb 6.6 L* Hct 22.3 L MCV 68.8 L MCH 20.3 L MCHC 29.5 L RDW 22.7 H Plt Count 94 L MPV Monocytes % (Manual) Nucleated RBCs RBC Morphology Polychromasia Hypochromasia Anisocytosis Microcytosis Ovalocytes Potassium 5.3 H BUN 27 H Glucose 113 H Calcium Iron Ferritin NT-Pro-B Natriuret Pep Urine Protein Urine Glucose (UA) Urine Occult Blood Ur Leukocyte Esterase Urine RBC Urine WBC Hyaline Casts Meds: Medications Acetaminophen (Tylenol) 650 mg PO Q6HP PRN; Protocol PRN Reason: Per Pain Protocol/Fever > 101 Last Admin: 09/15/19 00:27 Dose: 650 mg Documented by: Albuterol/Ipratropium (Duoneb) 3 ml NEB Q6HP PRN PRN Reason: Shortness Of Breath Or Wheezing Bupropion HCl (Wellbutrin Xl) 300 mg PO DAILY [facility] Last Admin: 09/16/19 10:15 Dose: 300 mg Documented by: Docusate Sodium (Colace) 100 mg PO BID [facility] Last Admin: 09/16/19 09:38 Dose: Not Given Documented by: Famotidine (Pepcid) 20 mg IV Q12 [facility] Last Admin: 09/16/19 09:38 Dose: 20 mg Documented by: Lactulose (Cephulac) 10 gm PO DAILYP PRN PRN Reason: Constipation Levothyroxine Sodium (Synthroid) 150 mcg PO QAMAC [facility] Last Admin: 09/16/19 09:38 Dose: 150 mcg Documented by: Losartan Potassium (Cozaar) 50 mg PO DAILY [facility] Last Admin: 09/16/19 09:38 Dose: 50 mg Documented by: Ondansetron HCl (Zofran) 4 mg IV Q4HP PRN; Protocol PRN Reason: Nausea And Vomiting Last Admin: 09/16/19 09:37 Dose: 4 mg Documented by: Senna (Senokot) 2 tab PO HSP PRN PRN Reason: Constipation Sertraline HCl (Zoloft) 100 mg PO DAILY [facility] Last Admin: 09/16/19 10:15 Dose: 100 mg Documented by: Sodium Chloride (Saline Flush) 10 ml IV Q8 [facility] Last Admin: 09/16/19 05:44 Dose: Not Given Documented by: Medical - PN: A/P - Time Spent With Patient Total time spent is greater than 50% in coordination of care (as documented) at patient's floor/unit and/or counseling patient: - Narrative A/P Narrative: Acute blood loss anemia Probable GI bleed Plan She received 2 units of blood Plan was to do an EGD but patient refused EGD Patient and family does not want any active evaluation of her GI bleed They understand this could be life-threatening and even then patient and family does not want any interventions for now Morbid obesity, obesity hypoventilation and probable pulmonary hypertension Monitor her oxygenation We will order a dose of Lasix patient probably has severe sleep apnea This morning she was very drowsy and confused probably due to CO2 narcosis Patient does not want any active treatments Discussed with the family and we will get a physical therapy evaluation and decide on the discharge plan Dementia with behavioral changes Patient reportedly having Lewy body dementia diagnosed by the primary care provider. Patient never seen a neurologist according to the report She is having hallucination and delusions intermittently at home but none during the hospital stay Family could not handle her at home because of her debility and obesity with a worsening dementia symptoms Social service consult and physical therapy evaluation pending Sleep apnea Patient refuses to use the CPap machine Will use oxygen as needed Severe back pain We will try to minimize the use of narcotics DVT prophylaxis-SCDs and no heparin products until BX results CODE STATUS-DNR verified with family Expected length of stay-at least 1-2 midnights Disposition-physical therapy evaluation pending, social service involved and will discuss with the family
[2019-09-16] MEDS ORDERED: LACTULOSE 20 GM/30 ML ORAL.SOL PO PRN (14:29)
[2019-09-16] MEDS ORDERED: SENNOSIDES 1 TABLET PO PRN (14:29)
[2019-09-16] MEDS ORDERED: ACETAMINOPHEN 325 MG TABLET PO PRN (14:29)
[2019-09-16] MEDS ORDERED: ONDANSETRON 4 MG/2 ML VIAL IV PRN (14:29)
[2019-09-16] MEDS ORDERED: IPRATROPIUM/ALBUTEROL 3 ML AMPUL.NEB NEB PRN (14:29)
[2019-09-17] MEDS: 0.9 % SODIUM CHLORIDE 10 ML SYRINGE IV SCH ×2 (05:28→12:22)
[2019-09-17] MEDS ORDERED: LEVOTHYROXINE 150 MCG TABLET PO SCH (07:30)
[2019-09-17] MEDS: DOCUSATE SODIUM 100 MG CAPSULE PO SCH (08:06)
[2019-09-17] MEDS: FAMOTIDINE/PF 20 MG/2 ML VIAL IV SCH (08:07)
[2019-09-17] MEDS ORDERED: buPROPion 150 MG TAB.XL.24H PO SCH (09:00)
[2019-09-17] MEDS ORDERED: SERTRALINE 100 MG TABLET PO SCH (09:00)
[2019-09-17] MEDS ORDERED: LOSARTAN 50 MG TABLET PO SCH (09:00)
--- NOTE | 2019-09-17 10:14 | Discharge Summary ---
Medical - DS: Prov Patient information: Note initiated : 09/17/19 at 10:08 am Service Date, if different from initiated Date: [] Patient: Diamond Bagley 74 y/o F admitted on 09/14/19 for weakness. Chief Complaint: [] Date of admission: 09/14/19 21:46 Discharge date: 09/17/19 Primary care physician: Issa Iyer Consults: 09/14/19 Consult to Physician [CONS] Stat Comment: Consulting Provider: Tamar Blackwood Reason For Exam: Physician to Consult Medical - DS: Meds - Discharge Medications Active and Home Medications: Home Medications LORazepam [Ativan] 2 mg PO HSP PRN 08/21/16 [History Confirmed 09/15/19 Last Taken 09/14/19] Ondansetron [Zofran ODT] 4 mg SL Q4HP PRN 08/21/16 [History Confirmed 09/15/19 Last Taken Unknown] Pantoprazole [Protonix] 40 mg PO DAILY 08/21/16 [History Confirmed 09/14/19 Last Taken 09/14/19] Promethazine HCl 12.5 mg PO Q6HP PRN #20 tablet 08/21/16 [Rx Confirmed 09/14/19 Last Taken 09/14/19] Zafirlukast 20 mg PO BID 08/21/16 [History Confirmed 09/15/19 Last Taken 09/14/19] buPROPion HCL [Wellbutrin Xl] 300 mg PO DAILY 08/21/16 [History Confirmed 09/14/19 Last Taken 09/14/19] Albuterol Sulfate [Ventolin] 2 puff INH Q4-6HP PRN #1 inhaler 08/04/18 [Rx Last Taken 09/14/19] Pregabalin [Lyrica] 150 mg PO TID 09/14/19 [History Confirmed 09/14/19 Last Taken 09/14/19] Sertraline [Zoloft] 100 mg PO DAILY 09/14/19 [History Confirmed 09/15/19 Last Taken 09/14/19] Telmisartan [Micardis] 20 mg PO DAILY 09/14/19 [History Confirmed 09/14/19 Last Taken 09/14/19] Adult Low Dose Aspirin EC 81 mg PO DAILY 09/15/19 [History Confirmed 09/15/19 Last Taken Unknown] Empagliflozin [Jardiance] 10 mg PO 09/15/19 [History Last Taken Unknown] L.acidop,Salazar,Lac,Rha/B.lac,Luis Angel [Advanced Probiotic Capsule] 1 tab 09/15/19 [History Last Taken Unknown] Levothyroxine [Synthroid] 150 mcg PO QAMAC 09/15/19 [History Confirmed 09/15/19 Last Taken Unknown] Lovastatin 40 mg PO DAILY 09/15/19 [History Confirmed 09/15/19 Last Taken Unknown] metFORMIN HCL [Metformin HCl] 500 mg PO BID 09/15/19 [History Confirmed 09/15/19 Last Taken Unknown] Medical - DS: Hosp Hospital Course: This is a 74-year-old female with morbid obesity, sleep apnea untreated, Yesy body dementia was admitted with a weakness and probable blood loss anemia. Patient was kept n.p.o. and ordered 1 unit of blood transfusion recheck he acostabin. She received 2 units of blood transfusion and we discussed with gastroenterology and plan was to do an EGD. But patient refused every treatment since then she is alert oriented has the capacity to make decisions. Discussed with the family and they concurred patient's decision and decided not to proceed any active measures. Patient does not want any active measures she wants to be comfortable and discussed with the patient's family and patient will be discharged home with hospice care. Patient has severe sleep apnea and respiratory failure and probable cor pulmonale due to the same. Patient does not want to go to any rehab no other facility she wants to go home and be comfortable. Patient will be discharged home with hospice care on board. I encouraged the patient not to use any NSAIDs because of her GI bleed and stop the celecoxib ON her DEC 10-patient was n.p.o. and ordered another unit as her hemoglobin was 7.6 and she is still complaining of shortness of breath. Discussed with gastroenterology Dr. Alegre and plan was to do an EGD. But this afternoon but patient refused EGD, discussed with the family and family agreed they do not want EGD as the patient is refusing. Patient understands she could from the GI bleed if we do not find out the source and to stop the bleeding patient seems to be understanding family understands. Because of her dementia family is leaning more towards comfort care and I gave them the option to consider comfort measures if the patient does not want any active interventions. Patient was also very drowsy this morning and shown the signs of carbon dioxide narcosis probably from severe sleep apnea which is untreated patient refuses CPAP at any cost she understands she could from carbonDIOXIDE narcosis but even then she does not want CPAP. Discussed with gastroenterology and gastroenterology PA will come and talk to the patient. 09/16-patient refused any of the care, discussed with the patient's family and t hey do not want any active treatments. Discussed with the family about planning to discharge her and physical therapy will evaluate the patient if she allows. Patient refused EGD patient refused further evaluation of GI bleed. She is intermittently confused but right now she is alert oriented has a decision- making capacity she is totally aware of the medical background and she understands the complications she reiterated that to me. Acute blood loss anemia Probable GI bleed Plan She received 2 units of blood Plan was to do an EGD but patient refused EGD Patient and family does not want any active evaluation of her GI bleed They understand this could be life-threatening and even then patient and family does not want any interventions for now Morbid obesity, obesity hypoventilation and probable pulmonary hypertension Monitor her oxygenation We will order a dose of Lasix patient probably has severe sleep apnea This morning she was very drowsy and confused probably due to CO2 narcosis Patient does not want any active treatments Discussed with the family and we will get a physical therapy evaluation and decide on the discharge plan Dementia with behavioral changes Patient reportedly having Lewy body dementia diagnosed by the primary care provider. Patient never seen a neurologist according to the report She is having hallucination and delusions intermittently at home but none during the hospital stay Family could not handle her at home because of her debility and obesity with a worsening dementia symptoms Social service consult and physical therapy evaluation pending Sleep apnea Patient refuses to use the CPap machine Will use oxygen as needed Severe back pain We will try to minimize the use of narcotics Discharge diagnosis: Acute blood loss anemia, probable upper GI bleed, debility - Time Spent with Patient Total time spent providing and/or coordinating discharge services: Greater than 30 minutes Medical - DS: Exam - Constitutional Vitals: Vital Signs Temp Pulse Resp BP Pulse Ox 09/17/19 08:00 98.0 F 81 18 151/63 90 09/17/19 02:52 98.0 F 79 18 145/71 81 L 09/17/19 00:05 98.2 F 81 20 137/65 76 L 09/16/19 18:53 99.0 F 76 14 129/63 93 09/16/19 16:00 98.2 F 77 18 142/66 94 Intake and Output 09/16/19 09/17/19 09/17/19 21:59 05:59 13:59 Intake Total 300 Output Total 600 250 Balance -600 50 Intake: Oral 300 Output: Urine Catheter Amount 600 250 Other: Urine Appearance Cloudy Cloudy Urine Color Dark Yellow Dark Yellow Urine Odor Strong Strong Weight 326 lb General appearance: morbidly obese, severe distress - Head Head exam: Present: atraumatic, normal inspection, normocephalic - Eye Eye exam: Present: normal appearance. Absent: nystagmus, periorbital swelling, periorbital tenderness - ENT ENT exam: Present: mucous membranes dry, normal exam - Respiratory Respiratory exam: Present: decreased breath sounds, respiratory distress, wheezes - Cardiovascular Cardiovascular exam: Present: normal rate and rhythm. Absent: diastolic murmur - GI/Abdominal GI/Abdominal exam: Present: normal bowel sounds, soft, distended - Neurological Exam Neurological exam: Present: alert, oriented X3. Absent: motor sensory deficit Medical - DS: Data Labs on day of discharge: Preliminary micro results at discharge 09/14/19 17:10 Blood Culture - Preliminary Blood 09/15/19 00:35 Urine Culture - Preliminary Urine - Catheterized Medical - DS: A/P - Patient/Caregiver Discharge Instructions Activity: increase activity as tolerated Diet: Regular Diet - Follow up Plan Follow up with: Issa Iyer MD [Primary Care Provider] - (Follow up with physician's as needed.) Disposition: Hospice - Home Care Plan Goals: This discharge packet is provided to you to help keep you informed about your care. We want to ensure you get everything you need when you go home. You will also be receiving a call from us in a few days to follow up with you and see how you are doing since your discharge. This gives us a chance to listen to any concerns you maybe experiencing since you were discharged or any additional needs you may have, as well as providing us feedback on your care experience. We strive to always provide excellent care and thank you for your feedback and for choosing [facility]. Prognosis: Undetermined Rehab Potential: Serious Overall status at discharge: patient is back to baseline
[2019-09-18] MEDS ORDERED: FLU VACC QS2019-20(6MOS UP)/PF 60 MCG/0.5 ML SYRINGE IM ONE (10:00)
== END 2019-09-17 14:30 | disposition hospice, home (50) | DRG 812 ==
LOC: ED 16:40 → ICU 21:46 → MEDSUR 09-16 12:47
PROVIDERS: ADMIT Internal Medicine; ATTEND Internal Medicine